=== PATIENT | female | born 1995 | race Caucasian/White ===

== ENCOUNTER → 2020-03-20 14:15 | Outpatient (CLI) | payer MEDICAID, SELFPAY | PROVIDERS: Referring Provider Obstetrics & Gynecology; Visit Provider Obstetrics & Gynecology | DX: Z12.4 Encounter for screening for malignant neoplasm of cervix (principal); Z11.3 Encounter for screening for infections with a predominantly sexual mode of transmission ==

== ENCOUNTER → 2020-04-16 16:50 | Outpatient (CLI) | payer MEDICAID, SELFPAY ==
[2020-04-16 18:10] LABS: Absolute Lymphocyte Count 1.34 X10^3/uL (0.83-4.51); Absolute Neutrophil Count 6.2 X10^3/uL (2.0-7.7); Basophil# 0.01 X10^3/uL; Basophil% 0.1 % (0-1); Eosinophil# 0.05 X10^3/uL; Eosinophils% 0.6 % (0-5); Hemoglobin 14.3 g/dL (12.0-15.0); Lymphocyte # 1.34 X10^3/ul (4.0); Lymphocyte % 16.6 % (19-41); Mean Corp Hgb Conc 33.3 g/dL (32-36); Mean Corpuscular Hgb 30.5 pg (27.0-32.0); Mean Corpuscular Volume 91.7 fL (81-99); Mean Platelet Vol. 9.9 fl (6.2-12.0); Monocyte# 0.42 X10^3/uL; Monocyte% 5.2 % (0-10); NRBC Flagged by Analyzer 0 % (0-5); Neutrophil # 6.22 X10^3/uL (2.7-7.7); Neutrophil % 77.1 % (47-70); Platelet Count 248 K/mm3 (150-450); RBC Distribution Width CV 11.9 % (11.6-14.6); RBC Distribution Width SD 39.9 fl (35.1-43.9); Red Blood Count 4.69 M/mm3 (4.2-5.4); White Blood Count 8.1 K/mm3 (4.4-11.0)
[2020-04-16 18:33] LABS: Amphetamine Urine VISTA NEGATIVE (<1000 ng/mL); Barbiturate Urine VISTA NEGATIVE (< 200 ng/mL); Benzodiazepine Urine VISTA NEGATIVE (< 200 ng/mL); Cocaine Urine VISTA NEGATIVE (< 300 ng/mL); Ecstacy Urine VISTA NEGATIVE (< 500 ng/mL); Methadone Urine VISTA NEGATIVE (< 300 ng/mL); PCP Urine VISTA NEGATIVE (< 25 ng/mL); THC Urine VISTA NEGATIVE (< 50 ng/mL); Vista UDS pH Range 5
[2020-04-16 18:35] LABS: Color, Urine Yellow (Yellow); Glucose, Dipstick Normal (Normal); Ketone-Dipstick 5 mg/dl (Negative); Leukocyte Esterase-Dipstick Negative /ul (Negative); Nitrite-Dipstick Negative (Negative); Occult Blood-Urine Negative /ul (Negative); Protein-Dipstick 30 mg/dl (Negative); Specific Gravity, Urine 1.025 (1.002-1.030); Urine Bilirubin Dipstick Negative (Negative); Urine Clarity Clear (Clear); Urine Urobilinogen Normal (Normal)
[2020-04-16 18:53] LABS: Thyroid Stim Hormone (TSH) 0.41 uIU/mL (0.358-3.74)
[2020-04-17 10:53] LABS: HIV - WCH Non-Reactive (Nonreactive); Hepatitis B Surface Antigen Non-Reactive (Nonreactive); Hepatitis C Antibody Non-Reactive (Nonreactive); Rubella IgG 63.7 IU/mL
[2020-04-18 03:25] LABS: Prenatal RPR NONREACTIVE (NONREACTIVE)
[2020-04-18 14:25] LABS: Toxoplasma Gondii IgM < 3.0 AU/mL (0.0-7.9)
[2020-04-19 01:08] LABS: Toxoplasma Gondii IgG < 3.0 IU/mL (0.0-7.1); V-Zoster IgG (Immunity) 3034 index (Immune >165); t-Transglutaminase IgA <2 U/mL (0-3)
== END ==
PROVIDERS: Visit Provider Obstetrics & Gynecology
DX: Z34.81 Encounter for supervision of other normal pregnancy, first trimester (principal)
CPT/HCPCS: 36415; 80307; 81002; 83516; 84443; 85025; 86703; 86762; 86777; 86778; 86787; 86803; 87340

== ENCOUNTER → 2020-09-06 10:31 | Outpatient (CLI) | payer MEDICAID, SELFPAY ==
[2020-09-06 11:31] LABS: Hematocrit 40.9 % (37-47); Hemoglobin 13.6 g/dL (12.0-15.0); Mean Corp Hgb Conc 33.3 g/dL (32-36); Mean Corpuscular Hgb 31.5 pg (27.0-32.0); Mean Corpuscular Volume 94.7 fL (81-99); Mean Platelet Vol. 10.1 fl (6.2-12.0); Platelet Count 178 K/mm3 (150-450); RBC Distribution Width CV 12.5 % (11.6-14.6); RBC Distribution Width SD 43.4 fl (35.1-43.9); Red Blood Count 4.32 M/mm3 (4.2-5.4); White Blood Count 7.8 K/mm3 (4.4-11.0)
[2020-09-06 11:33] LABS: Glucose Challenge Gest 1H 50g 100 mg/dL (70-140)
== END ==
PROVIDERS: Visit Provider Obstetrics & Gynecology
DX: Z34.83 Encounter for supervision of other normal pregnancy, third trimester (principal)
CPT/HCPCS: 36415; 82950; 85027

== ENCOUNTER → 2020-10-22 17:10 | Outpatient (CLI) | payer MEDICAID, SELFPAY | PROVIDERS: Visit Provider Student in an Organized Health Care Education/Training Program | DX: Z36.85 Encounter for antenatal screening for Streptococcus B (principal) | CPT/HCPCS: 87081 ==

== ENCOUNTER → 2020-11-12 16:41 | Outpatient (CLI) | payer MEDICAID, SELFPAY ==
[2020-11-12 17:56] LABS: Hematocrit 41.1 % (37-47); Hemoglobin 13.6 g/dL (12.0-15.0); Mean Corp Hgb Conc 33.1 g/dL (32-36); Mean Corpuscular Volume 93.6 fL (81-99); Mean Platelet Vol. 11.4 fl (6.2-12.0); Platelet Count 169 K/mm3 (150-450); RBC Distribution Width CV 12.5 % (11.6-14.6); RBC Distribution Width SD 43.1 fl (35.1-43.9); Red Blood Count 4.39 M/mm3 (4.2-5.4); White Blood Count 7.2 K/mm3 (4.4-11.0)
[2020-11-12 18:08] LABS: ALB/GLOB Ratio 0.7 RATIO (0.9-2.4); AST(SGOT) 23 U/L (15-37); Alanine Aminotransfer ALT/SGPT 26 U/L (13-56); Albumin, Serum 2.8 g/dL (3.2-5.0); Alkaline Phosphatase 221 U/L (45-117); Anion Gap 5 (5-15); BUN 18 mg/dL (7-18); BUN/Creat Ratio 21.9 RATIO (10-20); Calcium,Total 8.7 mg/dL (8.5-10.1); Chloride 108 mmol/L (98-107); Creatinine, Serum 0.82 mg/dL (0.55-1.02); EST Glomerular Filtration Rate 91 mL/min (>60); Est Glom Filt Rate - Afr Amer 110 mL/min (>60); Glucose 76 mg/dL (74-106); LDH 135 U/L (84-246); Potassium 4.2 mmol/L (3.5-5.1); Protein, Total 6.8 g/dL (6.4-8.2); Sodium Level 137 mmol/L (136-145)
[2020-11-12 18:14] LABS: Protein, Urine (Random) 55.4 mg/dL (<11.9); Protein:Creat Ratio 417 mg/g CRE (0-200)
== END ==
PROVIDERS: Visit Provider Student in an Organized Health Care Education/Training Program
DX: O13.9 Gestational [pregnancy-induced] hypertension without significant proteinuria, unspecified trimester (principal); Z3A.00 Weeks of gestation of pregnancy not specified
CPT/HCPCS: 36415; 80053; 82570; 83615; 84156; 85027; 87086; 87088

== ENCOUNTER 2020-11-17 19:17 | Inpatient (IN) | payer MEDICAID, SELFPAY ==
[2020-11-17] VITALS (13 sets, daily range): BP systolic 130–140; BP diastolic 81–90; PULSE 81–102; TEMP 36.8–37.5; O2SAT 96–100; BMI 31.1
[2020-11-17] MEDS: Lactated Ringers 1,000 ML 50 ML IV (20:15)
[2020-11-17 20:39] LABS: Absolute Lymphocyte Count 1.24 X10^3/uL (0.83-4.51); Basophil# 0.01 X10^3/uL; Basophil% 0.1 % (0-1); Eosinophil# 0.06 X10^3/uL; Eosinophils% 0.7 % (0-5); Hematocrit 41.7 % (37-47); Hemoglobin 14.1 g/dL (12.0-15.0); Lymphocyte # 1.24 X10^3/ul (4.0); Lymphocyte % 14.1 % (19-41); Mean Corp Hgb Conc 33.8 g/dL (32-36); Mean Corpuscular Hgb 31.3 pg (27.0-32.0); Mean Corpuscular Volume 92.5 fL (81-99); Mean Platelet Vol. 10.9 fl (6.2-12.0); Monocyte# 0.46 X10^3/uL; Monocyte% 5.2 % (0-10); NRBC Flagged by Analyzer 0 % (0-5); Neutrophil # 7.02 X10^3/uL (2.7-7.7); Neutrophil % 79.6 % (47-70); Platelet Count 173 K/mm3 (150-450); RBC Distribution Width CV 12.5 % (11.6-14.6); RBC Distribution Width SD 42.3 fl (35.1-43.9); Red Blood Count 4.51 M/mm3 (4.2-5.4); White Blood Count 8.8 K/mm3 (4.4-11.0)
[2020-11-17] MEDS: Oxytocin 30 units/NS 500 ml 30 UNITS/500 ML IV.SOLN IV (20:40)
--- NOTE | 2020-11-17 21:37 | HP.PCM_ITS ---
History Date of Admission: 11/17/20 Final JUAN DIEGO: 11/19/20 Final JUAN DIEGO Source: US <20 weeks Gestational age: 39 Weeks and 5 Days History of this : This is a 25 year-old, G [1], P [], at 39 5/7 weeks gestational age presenting for scheduled IOL for hx preeclampsia without severe features vs. gHTN. Had elevated urine P/C. + FM, no leaking of fluid. She notes contractions started earlier in the day and she has passed some mucus plug. Medical History: Medical History (Last Updated 11/17/20 @ 21:[address] Vidhi Young MD) Seasonal allergies J30.2 Allergies No Known Drug Allergies Allergy (Verified 11/17/20 19:25) Other pt has no known drug allergies Smoking Status: Never smoker Alcohol: None Number of Fetus(es): 1 NST - FHR Rate Baby A Baseline: 130 Variability:: Moderate Decelerations:: None NST Reactive:: Yes FHR Category:: Category I Uterine Activity:: 3/10 History Past Pregnancies: Past Pregnancies Delivery Date Name GA/ Weeks Outcome Route Wt Sex Labor Length Anesthesia Delivery Location Provider FOB Labs: Antepartum Flowsheet: SHM Nov 04 39 193 118/96 1+ - 38 V 1 50 -5 CM 09 Nov 04 39 192 144/90 1+ - 39 V 1 60 -3 CM 02 Nov 04 38 192 132/64 - - 38 V CM Oct 04 37 190 118/72 tr - 37 V CM Oct 04 36 183 124/72 - - 36 V CM Oct 04 35 186 118/62 - - 35 V JMW Sep 04 32 174 120/72 - - 33 V? CM Sep 04 30 173 124/74 tr 1+ 30 JM Aug 05 28 168 120/70 - - 28 - JM Jul 07 24 163 120/78 tr - 24 - JMW 30 Jun 07 20 157 110/74 - - 20 CH Jun 07 16 149 124/64 - - CH May 07 13 146 122/56 - - CH 14 Apr 06 9 142 120/88 tr - Mom's Labs & Results 11/17/20 11/17/20 20:05 20:05 WBC 8.8 RBC 4.51 Hgb 14.1 Hct 41.7 MCV 92.5 MCH 31.3 MCHC 33.8 RDW Std Deviation 42.3 RDW Coeff of Alexx 12.5 Plt Count 173 MPV 10.9 Immature Gran % (Auto) 0.300 Neut % (Auto) 79.6 H Lymph % (Auto) 14.1 L Ponce % (Auto) 5.2 Eos % (Auto) 0.7 Baso % (Auto) 0.1 Absolute Neuts (auto) 7.0 Absolute Lymphs (auto) 1.24 Nucleated RBC % 0 Blood Type Pending Antibody Screen Pending Course Did the patient receive Yes care? Labs Blood Type: A RH: POSITIVE RPR/VDRL/Syphilis Nonreactive Rubella status Immune HbSAg Negative Date Done: 04/16/20 Chlamydia Negative Gonorrhea Negative HIV/AIDS Non-Reactive Group B Strep: Negative Current Obstetrical History Gestational Diabetes No Incompetent Cervix No Infertility No IUGR No Macrosomia No Hypertension/Pre-eclampsia Yes: GHTN Placenta Previa/Abruption No PTL/PROM No Uterine anomaly No Oligohydramnios No Polyhydramnios No Multiple gestation No Past Medical History Asthma No Diabetes No Hypertension No Heart disease No Mitral valve prolapse No Neurologic/Seizure disorder/ No Migraines Kidney disease No Liver disease No Varicosities No Clotting disorders/Hx of DVT No Thyroid Dysfunction No Other medical diseases No Psychiatric disorders No Major trauma No Abnormal PAP smear No Sleep apnea No Mammogram in the last 2 years No Social History Marital Status: SINGLE Alleged father Dustin Bray Hx Smoking No Smoking Status Never smoker Expected Delivery Method: Spontaneous Vaginal Number of Visits: 14 Review of Systems Constitutional: Denies: Fever Eyes: Denies: Vision Change Cardiovascular: Denies: Chest Pain, Palpitations Respiratory: Denies: Cough, Shortness of Breath Gastrointestinal: Denies: Abdominal Pain, Nausea, Vomiting Skin: Reports: Pruritis - at stretch ha Physical Exam Vitals: Vital Signs Temp Pulse BP Pulse Ox 99.5 F H 94 130/81 H 97 11/17/20 19:46 11/17/20 21:00 11/17/20 21:00 11/17/20 21:00 General: Alert, Oriented x3, Cooperative, No apparent distress HEENT: Atraumatic, Normocephalic Cardiovascular: Regular rate, Regular Rhythm, Normal S1, Normal S2 Lungs: Clear to auscultation, Normal air movement Abdomen: Soft, Non Tender, Non-Distended, Gravid Extremities:: No tenderness/swelling, Other - trace b/l LE edema Neurological: Neuro grossly intact, - - trace b/l LE DTRs, no clonus [employer] SALES REPRESENTATIVE: Normal external genitalia Estimated gestational size: Appropriate for gestational size Presentation: - - confirmed on US, OA Cervix Dilation (cm): 3 Station: -2 Effacement (%): 75 Assessment/Plan This is a 25 year-old, G [1], P [], at 39 5/7 weeks gestational age with gHTN/preeclampsia without severe features, Cat I FHR -No si/sx severe preeclampsia -GBS neg -Cervix favorable - pitocin started. -Reviewed plan of care with patient and spouse. Given opportunity to ask questions and questions answered to their satisfaction. -Covid19 testing pending -Consents signed.
[2020-11-17] MEDS: Lactated Ringers 500 ML 999 ML IV (23:23)
[2020-11-18] VITALS (44 sets, daily range): BP systolic 109–151; BP diastolic 60–93; PULSE 85–126; RESP 16–18; TEMP 36.4–37.2; O2SAT 90–100
[2020-11-18] MEDS: fentaNYL-bupivacaine (epidural) 100 ML BAG EPIDURAL ×2 (00:11→04:17)
[2020-11-18] MEDS: Lactated Ringers 1,000 ML 200 ML IV (04:07)
--- NOTE | 2020-11-18 06:48 | PCM.PN.BLA ---
Progress Note LABOR PROGRESS NOTE Doing well. No complaints. Comfortable with epidural. AVSS GEN - NAD, AAO x 3 FHR 135, moderate variability, + accelerations, + variable deceleration TOCO 3/10 min SVE FD/+2 station A/P: 25yo G1 @ 39 6/7 wga with Cat II FHR -Maternal and statuses reassuring -Start pushing STROKE Vital Signs/Narrative: Vital Signs Temp Pulse BP Pulse Ox 11/18/20 06:32 98.9 F 11/18/20 06:26 126 H 99 11/18/20 06:20 118 H 132/91 H 99 11/18/20 05:04 98.7 F 107 H 126/82 H 98 11/18/20 03:57 98.6 F 119 H 139/93 H 100 11/18/20 03:04 98.6 F 99 135/80 H 99
[2020-11-18] MEDS: Oxytocin 30 units/NS 500 ml 30 UNITS/500 ML IV.SOLN 334 UNITS IV (08:08)
[2020-11-18] MEDS: Methylergonovine 0.2 MG/ML Ampul IM (08:11)
--- NOTE | 2020-11-18 08:56 | PCM.OPRPT ---
Problem List (1) 39 weeks gestation of Status: Acute (2) (spontaneous vaginal delivery) Status: Acute (3) Gestational hypertension Status: Acute Qualifiers: Trimester: third trimester Qualified Code(s): O13.3 - Gestational [-induced] hypertension without significant proteinuria, third trimester Vaginal Delivery Maternal Presentation: Medically Indicated Induction Method of Induction: Pitocin Amniotic Membrane Rupture Type: Spontaneous Amniotic Fluid Description: Clear Final JUAN DIEGO: 11/19/20 Final JUAN DIEGO Source: US <20 weeks Gestational age: 39 Weeks and 6 Days Date of Procedure: 11/18/20 Pre-Operative Diagnosis: 1. 39 6/7wga 2. Gestational hypertension Post-Operative Diagnosis: same Surgery/ Procedure Performed: Spontaneous Vaginal Delivery Anesthesiologist: Gonzales Chavez Type of Anesthesia: Epidural Description of Procedure: Patient was FD/+4 station on my arrival. There was a posterior band of hymenal tissue present and I advised episiotomy. A left mediolateral episiotomy was performed with patient consent. The delivered with ease and was placed on the maternal abdomen. The was further attended by nursery personnel. The cord was doubly clamped and cut at 2 minutes of life. The placenta delivered spontaneously, appeared intact on inspection. A bimanual uterine exam was performed for uterine atony and followed by bimanual massage. Patient was given Methergine IM in addition to routine pitocin with improved hemostasis. A second degree perineal laceration was repaired with the left mediolateral episiotomy using 3-0 Vicryl Rapide. Hemostasis was excellent and fundus firm. Sponge and needle counts were correct x 2. Presentation: Vertex Placental Delivery Description: Spontaneous Placenta Disposition: [facility] Cord Vessel Description: 3 Vessels Nuchal Cord Compression: Without compression Cord Entanglement: None Drain: Diaz to straight drain Estimated Blood Loss: 650 ml Infant A gender: Female (1 minute): 8 (5 minute): 9 Episiotomy Description: Left Mediolateral Laceration: Midline, Vaginal Extension/lac, 2nd degree Medications given after delivery: IV Pitocin, IM Methergin Complications: None
--- NOTE | 2020-11-18 09:03 | DCINST_ITS ---
Discharge Diet: No Restrictions Discharge Activity: Return to Normal Activity, May Shower, May Take a Tub Bath May resume sexual activity in: 6 weeks Lifting Restrictions: 20-25 lb Call your doctor if you observe: Fever of 101 or Higher, Inability to urinate, Inability to have a bowel movement, Using more than one pad per hour, Shortness of breath, Chest pain, Calf discomfort, Uncontrolled pain Suture Line Care: Avoid Pulling/Pushing Cleanse incision/area with: Soap & Water Additional Instructions: If you experience any of the following, contact your healthcare provider. * Bleeding that soaks a pad every hour for 2 hours * Fever 100.4 or higher * Unrelieved incision or abdominal pain * Swelling, redness, discharge or bleeding from your incision or episiotomy site * Your incision begins to separate * Problems urinating (including inability to urinate or burning while urinating). * Visual changes * Severe headache * Flu-like symptoms * Pain or redness in one of both of your breasts * Pain, warmth, tenderness or swelling in your legs, especially the calf area * Frequent nausea and vomiting * Symptoms of depression or anxiety If you experience any of the following, call 911 or go to the nearest Emergency Room. * Chest pain * Problems breathing * Seizure activity * Partial or complete paralysis of a body part, slurred speech, weakness or drooping of the face, or a sudden inability to walk or hold your balance Allergies/Adverse Reactions: Allergies No Known Drug Allergies Allergy (Verified 11/17/20 19:25) Other pt has no known drug allergies Please Follow Up With: Nae Mcbride DO - Schedule a nurse blood pressure check When: 7-10 days Please Follow Up With: Nae Mcbride DO - visit When: 6 weeks Primary Care Physician: Care Physician,No Primary [Primary Care Provider] - Test Results: Test results from this visit will be discussed in further detail at your follow- up appointment, if applicable.
[2020-11-18] MEDS: Ibuprofen 600 MG Tablet PO ×2 (10:53→18:52)
[2020-11-18] MEDS: 0.9% Saline Lock 10 ML Syringe IV (11:07)
[2020-11-18] MEDS: Acetaminophen 500 MG Tablet 1000 MG PO (23:38)
[2020-11-19] MEDS: Dibucaine 30 GM Tube 1 APPLIC TOPICAL (01:54)
[2020-11-19] MEDS: Ibuprofen 600 MG Tablet PO ×3 (01:54→14:45)
[2020-11-19 03:11] VITALS: BP 116/77; PULSE 92; RESP 14; TEMP 36.9
[2020-11-19 05:08] LABS: Hematocrit 33.2 % (37-47); Hemoglobin 10.8 g/dL (12.0-15.0); Mean Corp Hgb Conc 32.5 g/dL (32-36); Mean Corpuscular Hgb 30.9 pg (27.0-32.0); Mean Corpuscular Volume 95.1 fL (81-99); Mean Platelet Vol. 10.3 fl (6.2-12.0); Platelet Count 142 K/mm3 (150-450); RBC Distribution Width SD 44.8 fl (35.1-43.9); Red Blood Count 3.49 M/mm3 (4.2-5.4)
[2020-11-19 08:00] VITALS: BP 120/73; PULSE 84; RESP 16; TEMP 36.1
--- NOTE | 2020-11-19 08:07 | PCM.PN.OB ---
Patient Problems: Active and Suspected Problems (Last Updated 11/17/20 @ 21:[address] Vidhi Young MD) 39 weeks gestation of (Acute) (spontaneous vaginal delivery) (Acute) Gestational hypertension (Acute) Subjective: day 1 Feeling well. Sore, Motrin is helping. Breast-feeding. - Physical Exam Vitals/I&O's: Vital Signs Temp Pulse Resp BP Pulse Ox 98.5 F 92 14 116/77 97 11/19/20 03:11 11/19/20 03:11 11/19/20 03:11 11/19/20 03:11 11/18/20 15:30 Oxygen Delivery Method Room Air Weight: 87.725 kg Body Mass Index (BMI) 31.1 Intake and Output for Last 24 Hours 11/17/20 11/18/20 11/19/20 23:59 23:59 23:59 Intake Total 674.66 / 674.66 2249.87 / 2249.87 Output Total 300 / 300 Balance 674.66 / 674.66 1949.87 / 1949.87 General: Alert, Oriented x3, No apparent distress HEENT: Atraumatic, Normocephalic Lungs: Clear to auscultation, Normal air movement Cardiovascular: Regular rate Abdomen: Soft - Uterus 2 cm below umbilicus Extremities: No edema Neurological: Cranial nerves II-XII grossly intact Psych/Mental Status: Normal Affect, Appropriate Microbiology Past 72 Hours 11/17/20 21:43 Mucosa - Nose SARS-CoV-2 Antigen (Rapid) - Final Laboratory Results 11/19/20 05:00: WBC 10.0, RBC 3.49 L, Hgb 10.8 L, Hct 33.2 L, MCV 95.1, MCH 30.9, MCHC 32.5, RDW Std Deviation 44.8 H, RDW Coeff of Alexx 13.0, Plt Count 142 L, MPV 10.3 Current Medications Acetaminophen (Acetaminophen 500 Mg Tablet) 1,000 mg PO Q8H PRN PRN PRN Reason: Pain Score 1-3 Last Admin: 11/18/20 23:38 Dose: 1,000 mg Documented by: Bisacodyl (Bisacodyl 10 Mg Suppository) 10 mg RECTAL UD PRN PRN Reason: If no BM Dibucaine (Dibucaine 30 Gm Tube) 1 applic TOPICAL TID PRN PRN; Protocol PRN Reason: Discomfort Last Admin: 11/19/20 01:54 Dose: 1 applic Documented by: Hydrocortisone (Hydrocortisone 2.5% Crm) 1 applic TOPICAL TID PRN PRN; Protocol PRN Reason: Discomfort Ibuprofen (Ibuprofen 600 Mg Tablet) 600 mg PO Q6H PRN PRN PRN Reason: Pain Score 1-3 Last Admin: 11/19/20 01:54 Dose: 600 mg Documented by: Ondansetron HCl (Ondansetron 4 Mg/2 Ml Vial) 4 mg IV Q4H PRN PRN PRN Reason: Nausea Senna/Docusate Sodium (Senna/Docusate Sodium 1 Tablet) 1 - 2 tablet PO DAILY PRN PRN PRN Reason: Constipation Simethicone (Simethicone 80 Mg Tablet) 80 mg PO PCHS PRN PRN Reason: Indigestion/Stomach pain Sodium Chloride (0.9% Saline Lock 10 Ml Syringe) 5 - 15 ml IV UD PRN PRN Reason: SALINE FLUSH Last Admin: 11/18/20 11:07 Dose: 10 ml Documented by: Zolpidem Tartrate (Zolpidem Tartrate 5 Mg Tablet) 5 mg PO QHS PRN PRN PRN Reason: Insomnia Medical Necessity - Tobacco Use Smoking Status: Never smoker Assessment/Plan All Active Problems (Last Updated 11/17/20 @ 21:[address] Vidhi Young MD) 39 weeks gestation of (Acute) (spontaneous vaginal delivery) (Acute) Gestational hypertension (Acute) 25-year-old day 1 status post , episiotomy. Patient doing well, pain controlled. Breast-feeding. Complicated by preeclampsia without severe features. Blood pressures within normal limits, likely home tomorrow with 1 week blood pressure follow-up, consider home today if blood pressure is normal throughout the day.
[2020-11-19] MEDS: Acetaminophen 500 MG Tablet 1000 MG PO (13:48)
[2020-11-19 14:00] VITALS: BP 116/76; PULSE 89; RESP 16; TEMP 36.2
== END 2020-11-19 16:00 | disposition home or self-care (01) | DRG 560 ==
PROVIDERS: Student in an Organized Health Care Education/Training Program; Admitting Provider Obstetrics & Gynecology; Visit Provider Obstetrics & Gynecology
DX: O14.04 Mild to moderate pre-eclampsia, complicating childbirth (principal); Z37.0 Single live birth; Z3A.39 39 weeks gestation of pregnancy; O76 Abnormality in fetal heart rate and rhythm complicating labor and delivery; O62.2 Other uterine inertia
CPT/HCPCS: 59025; 59050; 76815; 85025; 85027; 86850; 86900; 86901; 87426; 99218; J7120; A4216; G0378

== ENCOUNTER → 2022-08-17 | Outpatient (CLI) | payer MEDICAID, SELFPAY ==
--- NOTE | 2022-08-17 12:47 | US_ITS ---
STUDY: SUPERFICIAL ULTRASOUND - RIGHT WRIST REASON FOR EXAM: Female, 27 years old. cyst -- ATTN right wrist TECHNIQUE: A superficial ultrasound was performed with cine and static batres-scale imaging. COMPARISON: Wrist radiograph July 21, 2022. FINDINGS: There is localized anechoic fluid 1.6 mm in thickness encasing dorsal extensor tendon in the area labeled as the area of interest. Prominent vessel noted adjacent to the tendon US/Other Unlisted US Procedure IMPRESSION: Dorsal extensor tenosynovitis or ganglion cyst in the area of clinical concern. Consider MRI to better localize and characterize Electronically Signed: Skyler Mckinney MD at 4:41 EST ,
== END | disposition home or self-care (01) ==
LOC: US 12:46
PROVIDERS: Referring Provider Orthopaedic Surgery Sports Medicine; Visit Provider Orthopaedic Surgery Sports Medicine
DX: M67.431 Ganglion, right wrist (principal)
CPT/HCPCS: 76999

== ENCOUNTER 2022-11-03 15:30 | Outpatient (RCR) | payer MEDICAID, SELFPAY ==
--- NOTE | 2022-08-26 16:04 | HP.PTEVAL_ITS ---
Patient's Visit Information HARJEET ADAM is a 27 year old F referred to Physical Therapy by Dr. Jah Castro DO with a diagnosis of Neck pain. Date of Evaluation: 08/26/22 Physical Therapist: Edis Norwood, PT, ATC - Visit Plan Frequency: 2-3x /Week Duration: 4 Weeks Plan: Postural edu, DTR, scap stab ex's, UBE, and HEP - Subjective Pt reports she has had neck pain for 1 1/2 years. Pt notes she had her daughter at that time and attributes that to having to maintain weird postures secondary to breast feeding. Pt reports she has sleep difficulty secondary to neck pain. Pt denies any tingling or numbness in her UE's at this time. Pt is a stay at home mom, and notes she feels limited with IADL's at times secondary to neck pain. Pt also notes in the past 2 months, she has experienced dizzy spells which are limiting to her. She feels like her neck pain and dizzy spells might be related. Pt reports she has had x-rays which revealed she has a flat spine with scoliosis. Pt reports she was sent here in hope of decreasing her pain. 3/10 pain while sitting here in the clinic, 9/10 pain at worst. - Pain C/S pain Pain Intensity (Out of 10): 3 Pain Intensity Range: 9 - Objective Neuro: B UE sensation is WNL to light touch. B bicipital reflex= 2/3. MMT: B UE strength 5/5 throughout. ROM: Pt is minimally limited with c/s retraction. All other motions are WNL. Repeated movements: RPIS 10x3 NE. RRIS 10x3 Minor increase in pain. Special tests: No pos tests this date - Balance/Special Test Scores Oswestry Neck Score: 15 - Goals Goal 1:: Decrease neck pain x 50% to aid with sleep Goal Time Frame: 4-6 Weeks Goal 2:: [id number] retraction and extension ROM x 1 grade to aid with restoring posture Goal Time Frame: 4-6 Weeks Goal 3:: Pt will verbally and physically display proper posture in order to decrease neck pain Goal Time Frame: 4-6 Weeks Goal 4:: I with HEP Goal Time Frame: 4-6 Weeks - Rehabilitation Potential Physical Therapy Diagnosis: Pt has neck pain, decreased L/S ROM, and poor posture secondary to c/s and scapular weakness Rehabilitation Potential: Good - Anticipated Interventions Patient/Client Instruction: Educate patient on: Condition, Plan of Care For the Purpose of:: To improve self management Therapeutic Exercise to Include: Strength training, Endurance training, Active ROM, Dynamic Lumbar Stabilization, Scapular Strength/Stabilization For the Purpose of:: To decrease pain, To increase ROM, To improve muscle performance and motor function Manual Therapy Techniques to Include: Soft tissue mobilization For the Purpose of:: To decrease pain Thank you for the opportunity to evaluate your patient. For Medicare and Medicare HMO plans, please review the plan of care and approve it. It will need to be FAXED BACK to us at [phone] for Medicare purposes. For Medicare only, by signing this I certify the plan of care. Please let me know if there are questions or concerns regarding this plan of care. Physician Signature: Dat e:
--- NOTE | 2022-11-03 16:18 | HP.PTREVAL ---
Dr. Jah Castro, DO, It has been my pleasure to treat HARJEET ADAM over the last 8 visits for Neck pain. Please see the progress note below for an update on the physical therapy plan of care! Subjective: My neck is really sore today Objective/Function: C/S pain has decreased some now to where pt can sleep throughout the night. Pt has improved C/S ROm, but remains limited at times. Pt is showing improvements but would benefit from further PT to focus on ROM and pain control for C/S Plan Plan: Attmept to get a date extension to continue with POC Balance/Gait/Functional tests - Balance/Special Test Scores Oswestry Neck Score: 15 Goals Goal 1:: Decrease neck pain x 50% to aid with sleep Goal Time Frame: 4-6 Weeks Goal Progress: Progressing Goal 2:: [id number] retraction and extension ROM x 1 grade to aid with restoring posture Goal Time Frame: 4-6 Weeks Goal Progress: Progressing Goal 3:: Pt will verbally and physically display proper posture in order to decrease neck pain Goal Time Frame: 4-6 Weeks Goal Progress: Progressing Goal 4:: I with HEP Goal Time Frame: 4-6 Weeks Goal Progress: Progressing Anticipated Interventions Patient/Client Instruction: Educate patient on: Condition, Plan of Care For the Purpose of:: To improve self management Therapeutic Exercise to Include: Strength training, Endurance training, Active ROM, Dynamic Lumbar Stabilization, Scapular Strength/Stabilization For the Purpose of:: To decrease pain, To increase ROM, To improve muscle performance and motor function Manual Therapy Techniques to Include: Soft tissue mobilization For the Purpose of:: To decrease pain Please do not hesitate to contact me at [phone] by phone or if you have questions or concerns regarding this new plan of care! Sincerely, Edis Norwood, PT, ATC
--- NOTE | 2023-02-05 07:28 | HP.PT.NRP ---
HARJEET ADAM was seen in my office for initial evaluation on 08/26/22. The following Plan of Care was established for this patient: Initial Frequency: 2-3x /Week Initial Duration: 4 Weeks Patient/Client Instruction: Educate patient on: Condition, Plan of Care For the Purpose of:: To improve self management Therapeutic Exercise to Include: Strength training, Endurance training, Active ROM, Dynamic Lumbar Stabilization, Scapular Strength/Stabilization For the Purpose of:: To decrease pain, To increase ROM, To improve muscle performance and motor function Manual Therapy Techniques to Include: Soft tissue mobilization For the Purpose of:: To decrease pain This patient was last seen in our office . Pertinent comments regarding their Physical therapy will appear below: Pt was treated for 8 PT visits for neck pain through the date of 11/03/22. Pt has not returned through todays date and is discontinued at this time. At this point I will be discontinuing this patient from physical therapy. I would be happy to see this patient again in the future if found appropriate by the physician. Thank you! Edis Norwood, PT, ATC Balance/Gait/Functional tests - Balance/Special Test Scores Oswestry Neck Score: 15
== END 2022-11-03 19:00 | disposition home or self-care (01) ==
LOC: PT 15:30
PROVIDERS: Referring Provider Orthopaedic Surgery; Visit Provider Orthopaedic Surgery
DX: M50.20 Other cervical disc displacement, unspecified cervical region (principal)
CPT/HCPCS: 97140; 97161

== ENCOUNTER → 2023-05-25 | Outpatient (CLI) | payer MEDICAID, SELFPAY | END | disposition home or self-care (01) | LOC: LABSPEC 16:38 | PROVIDERS: Visit Provider Student in an Organized Health Care Education/Training Program | DX: N91.1 Secondary amenorrhea (principal) | CPT/HCPCS: 87086 ==

== ENCOUNTER 2024-01-01 07:02 | Inpatient (IN) | payer MEDICAID, SELFPAY ==
[2024-01-01] VITALS (47 sets, daily range): BP systolic 103–135; BP diastolic 57–86; PULSE 74–126; RESP 16–20; TEMP 37.1–37.4; O2SAT 95–100; BMI 32.0
[2024-01-01] MEDS: Lactated Ringers 1,000 ML 50 ML IV (08:14)
--- NOTE | 2024-01-01 08:16 | PCM.HP.OB ---
HPI - General General Date of Admission: 01/01/24 HPI Narrative HARJEET ADAM, is a 28 F @ 39.5weeks who presents c/o contractions- was 1cm after 2 hours of observation made change to 4cm. contractions slowed but did have a few variables. [facility] Medical History (Updated 01/01/24 @ 08:[address] Zoila Copeland MD) De Quervain's disease (radial styloid tenosynovitis) Ganglion cyst of volar aspect of right wrist Seasonal allergies Home Medications magnesium 200 mg tablet 200 mg PO DAILY 07/21/22 [History Last Taken Unknown] aspirin 81 mg capsule 81 mg PO BID 01/01/24 [History Last Taken Unknown] [id number] 1 mg tablet tab PO 01/01/24 [History Last Taken Unknown] Allergy/AdvReac Type Severity Reaction Status Date / Time No Known Drug Allergies Allergy Other Verified 01/01/24 04:37 Family History (Updated 07/21/22 @ 10:42 by Ondina Atkinson) Aunt Cancer Diabetes Grandfather Prostate cancer Diabetes Social History (Updated 07/21/22 @ 10:42 by Ondina Atkinson) Smoking Status: Never smoker alcohol intake: current alcohol intake frequency: a few times a month History Elective abortions Hx Para 1 Spontaneous abortions Hx # Term Pregnancies Ectopic pregnancies Hx # Pregnancies Multiple births # of living children NST FHR Rate Baby A Baseline: 145 Variability:: Moderate Accelerations:: 15 x 15 Decelerations:: None NST Reactive:: Yes Uterine Activity:: reactive Vital Signs Vital Signs Vital Signs: 01/01/24 04:41 01/01/24 04:41 01/01/24 04:41 Temperature Temperature Source Pulse Rate 108 H Respiratory Rate Blood Pressure 122/82 H BP Systolic 122 BP Diastolic 82 Pulse Ox 97 01/01/24 04:41 01/01/24 04:41 01/01/24 04:41 Temperature 99.3 F H Temperature Source Temporal Pulse Rate Respiratory Rate 20 H Blood Pressure BP Systolic BP Diastolic Pulse Ox 01/01/24 08:09 01/01/24 08:09 Temperature Temperature Source Pulse Rate 97 Respiratory Rate Blood Pressure BP Systolic BP Diastolic Pulse Ox 99 Weight Weight: 89.993 kg Body Mass Index (BMI) 32.0 Labs Labs Labs: Blood Type A POSITIVE Antibody Screen NEGATIVE Hct 33.2 % (37-47) L Hgb 10.8 g/dL (12.0-15.0) L VZV IgG Antibody 3034 index (Immune >165) Rubella IgG Antibody 63.7 IU/mL Hep Bs Antigen Non-Reactive (Nonreactive) Hepatitis C Antibody Non-Reactive (Nonreactive) HIV 1&2 Antibody Non-Reactive (Nonreactive) Glucose 1 Hr 50 gm 100 mg/dL (70-140) Rhogam given: No Miscellaneous Test Assessment & Plan (1) 39 weeks gestation of : (2) History of gestational hypertension: (3) LGA (large for gestational age) fetus: PLAN: Plan Admit to L&D Mont[facility] FHR/TOCO Epidural if requested for pain Monitor VS Anticipate consider AROM or pitocin GBS negative
[2024-01-01 08:24] LABS: Absolute Lymphocyte Count 1.08 X10^3/uL (0.83-4.51); Absolute Neutrophil Count 7.7 X10^3/uL (2.0-7.7); Basophil# 0.02 X10^3/uL; Basophil% 0.2 % (0-1); Eosinophil# 0.05 X10^3/uL; Eosinophils% 0.5 % (0-5); Hematocrit 39.3 % (37-47); Hemoglobin 12.9 g/dL (12.0-15.0); Lymphocyte # 1.08 X10^3/ul (0.83-4.51); Lymphocyte % 11.6 % (19-41); Mean Corp Hgb Conc 32.8 g/dL (32-36); Mean Corpuscular Hgb 29.8 pg (27.0-32.0); Mean Corpuscular Volume 90.8 fL (81-99); Mean Platelet Vol. 10.6 fl (6.2-12.0); Monocyte# 0.37 X10^3/uL; NRBC Flagged by Analyzer 0 % (0-5); Neutrophil # 7.74 X10^3/uL (2.7-7.7); Neutrophil % 83.4 % (47-70); Platelet Count 156 K/mm3 (150-450); RBC Distribution Width CV 13.3 % (11.6-14.6); RBC Distribution Width SD 43.5 fl (35.1-43.9); Red Blood Count 4.33 M/mm3 (4.2-5.4); White Blood Count 9.3 K/mm3 (4.4-11.0)
[2024-01-01 09:25] LABS: Syphilis Antibodies Non-reactive
[2024-01-01] MEDS: Ondansetron 4 MG/2 ML Vial IV (09:53)
[2024-01-01] MEDS: 0.9% Saline Lock 10 ML Syringe IV (09:53)
[2024-01-01] MEDS: Acetaminophen 500 MG Tablet PO (10:44)
[2024-01-01] MEDS: LACTATED RINGERS 500 ML 999 ML IV (10:45)
[2024-01-01] MEDS: fentaNYL-bupivacaine (epidural) 100 ML BAG EPIDURAL (11:43)
--- NOTE | 2024-01-01 12:46 | PCM.PN.BLA ---
Progress Note pt seen at bedside, epidural in place- more comfortable with contractions. VE: 7-890/0, contractions still spaced out. AROM performed, small amount clear fluid. Will consider Pitocin which was d/w patient.
[2024-01-01] MEDS: Mag Hydrox/Al Hydrox/Simeth 30 ML UDC PO (13:33)
[2024-01-01] MEDS: Oxytocin 15 Units/NS 250ml 15 UNITS/250 ML IV.SOLN 2 UNITS IV (13:49)
--- NOTE | 2024-01-01 15:44 | EX.PCM.OBRPT ---
Vaginal Delivery Maternal Presentation Maternal Presentation: Active Labor Operative Information Date of Procedure: 01/01/24 Pre-Operative Diagnosis: LGA, 39 weeks gestation Post-Operative Diagnosis: same, live female Surgery / Procedure Performed: Spontaneous Vaginal Delivery Type of Anesthesia: Epidural Drain: Diaz to straight drain Estimated Blood Loss: 200 Time of Delivery: 15:26 Findings Description of Procedure: Patient progressed to fully dilated. Good maternal pushing efforts delivered the head followed by the anterior shoulder without complication and the rest the infant's body. was placed on the maternal chest for immediate skin to skin. Delayed cord clamping was performed. After 60 seconds the cord was clamped and cut. Infant was vigorous. At this time Pitocin was started and the placenta was delivered intact without complication. Second-degree vaginal laceration was appreciated. This was repaired using 2-0 Vicryl in the usual fashion and 3-0 Vicryl for skin repair in a subcuticular fashion. Fundus was firm. There were no complications. Presentation: Vertex Amniotic Membrane Rupture Type: Artificial Amniotic Fluid Description: Clear Placental Delivery Description: Spontaneous Placenta Disposition: [facility] Specimen(s) Removed: placenta Cord Vessel Description: 3 Vessels Cord Entanglement: None A Gender: Female (1 minute): 9 (5 minute): 9 Delayed Cord Clamping: Yes Post Vaginal Delivery Medications Given After Delivery: IV Pitocin Episiotomy Description: None Laceration: Perineal Extension/lac and 2nd degree Complication Complications: None
[2024-01-01] MEDS: Oxytocin 15 Units/NS 250ml 15 UNITS/250 ML IV.SOLN 83 UNITS IV (15:58)
[2024-01-01] MEDS: Ibuprofen 600 MG Tablet PO (16:58)
[2024-01-01] MEDS: Benzocaine/Lanolin/Aloe Vera 1 SPRAY EACH TOPICAL (16:59)
[2024-01-02] VITALS (7 sets, daily range): BP systolic 108–129; BP diastolic 56–71; PULSE 82–98; RESP 16; TEMP 36.5–36.9; O2SAT 97–99
--- NOTE | 2024-01-02 02:07 | DCINST_ITS ---
Discharge Instructions Diet Discharge Diet: No restrictions Activity May resume sexual activity in: 6-8 weeks Dressing / Incision Call your doctor if you observe: Fever of 101 or Higher, Inability to urinate, Using more than 1 pad per hour and Uncontrolled pain Follow Up Care Please Follow Up With: Zoila Copeland MD When: 1-2 weeks post and again at 6 weeks post . [phone] Test Results: Test results from this visit will be discussed in further detail at your follow- up appointment, if applicable. Discharge Plan Admission Admit Date/Time: 01/01/24 07:02 Attending Provider: Zoila Copeland Primary Care Provider: Care PhysicianElli Primary Discharge Orders/Prescriptions Prescriptions: New acetaminophen 500 mg Tablet 1,000 mg PO Q6H PRN PRN (Reason: Pain 1-10 Or Fever) Qty: 0 0RF ibuprofen 600 mg Tablet 600 mg PO Q6H PRN PRN (Reason: Pain Score 1-10) Qty: 0 0RF Continued magnesium 200 mg tablet 200 mg PO DAILY [id number] 1 mg tablet PO Discontinued aspirin 81 mg capsule 81 mg PO BID Referrals / Follow Up: Care Physician,No Primary [Primary Care Provider] - Disposition Disposition (needs filled in before D/C Order can be placed): Home, Self Care
--- NOTE | 2024-01-02 03:50 | PN_ITS ---
Subjective Subjective patient seen at bedside, doing well. Patient reports good pain control. lochia mild. Objective Data Objective Data Vital Signs: Vital Signs Temp Pulse Resp BP Pulse Ox O2 Del Method 98.4 F 98 16 129/71 H 99 Room Air 01/02/24 00:00 01/02/24 00:20 01/02/24 00:00 01/02/24 00:20 01/02/24 00:00 01/02/24 00:00 Oxygen Delivery Method Room Air Weight: 89.993 kg Body Mass Index (BMI) 32.0 Intake & Output: Intake and Output for Last 24 Hours 12/31/23 01/01/24 01/02/24 23:59 23:59 23:59 Intake Total 1879.46 / 1879.46 Output Total 1000 / 1300 300 / 300 Balance 879.46 / 579.46 -300 / -300 Lab / Micro Data 01/01/24 08:15 Labs: Laboratory Results - last 24 hr 01/01/24 08:15: WBC 9.3, RBC 4.33, Hgb 12.9, Hct 39.3, MCV 90.8, MCH 29.8, MCHC 32.8, RDW Std Deviation 43.5, RDW Coeff of Alexx 13.3, Plt Count 156, MPV 10.6, Immature Gran % (Auto) 0.300, Neut % (Auto) 83.4 H, Lymph % (Auto) 11.6 L, [place] % (Auto) 4.0, Eos % (Auto) 0.5, Baso % (Auto) 0.2, Absolute Neuts (auto) 7.7, Absolute Lymphs (auto) 1.08, Nucleated RBC % 0, Syphilis Total Ab Non-reactive, Blood Type A POSITIVE, Antibody Screen NEGATIVE Physical Exam Const alert and oriented x3 General Appearance: cooperative HEENT normocephalic Neck General: normal visual inspection GI soft to palpation and non-distended GI Narrative: Fundus firm Extremity normal to inspection and no calf tenderness Skin no rashes or lesions noted Neuro oriented x3 and CN's II-XII intact bilaterally Psych mental status grossly normal Assessment & Plan Assessment/Plan (1) Vaginal delivery: (2) LGA (large for gestational age) fetus: PLAN: Plan PPD# 1 , Doing well Routine care pain mgmt ambulation dc home
[2024-01-02] MEDS: Acetaminophen 500 MG Tablet 1000 MG PO ×2 (05:00→16:36)
[2024-01-02] MEDS: Senna/Docusate Sodium 1 Tablet PO (07:53)
[2024-01-02] MEDS: Ibuprofen 600 MG Tablet PO (07:53)
== END 2024-01-02 19:00 | disposition home or self-care (01) | DRG 560 ==
LOC: WPOUT 07:06 → WP 07:06
PROVIDERS: Admitting Provider Obstetrics & Gynecology; Visit Provider Obstetrics & Gynecology
DX: O36.63X0 Maternal care for excessive fetal growth, third trimester, not applicable or unspecified (principal); Z37.0 Single live birth; O70.1 Second degree perineal laceration during delivery; Z3A.39 39 weeks gestation of pregnancy; Z87.59 Personal history of other complications of pregnancy, childbirth and the puerperium
CPT/HCPCS: 59025; 59050; 85025; 86780; 86850; 86900; 86901; 99221; J7120; A4216; G0378; J2405